=== PATIENT | male | born 1960 | race Caucasian/White ===

== ENCOUNTER 2017-09-28 21:06 | Emergency (ER) | payer BC ==
[2017-09-28 22:04] VITALS: TEMP 99.6
[2017-09-28] MEDS ORDERED: AMOXICILLIN 250 MG CAP PO ONE (22:24)
[2017-09-28] MEDS ORDERED: AMOXICILLIN(FRIDGE) 125/5 ML BOTTLE ONE (22:42)
[2017-09-28 23:11] VITALS: BP 151/64; PULSE 77; RESP 20; O2SAT 98
== END 2017-09-28 22:50 | disposition home or self-care (01) ==
LOC: ED 21:06
DX: J01.00 Acute maxillary sinusitis, unspecified (principal)
CPT/HCPCS: 71046; 87804; 99282; 99283; A9270-GY

== ENCOUNTER 2018-06-08 14:51 | Emergency (ER) | payer BC ==
[2018-06-08 16:46] VITALS: BP 146/89; PULSE 79; RESP 18; TEMP 96.5; O2SAT 97
== END 2018-06-08 15:35 | disposition home or self-care (01) ==
LOC: ED 14:51
DX: S09.90XA Unspecified injury of head, initial encounter (principal); S01.01XA Laceration without foreign body of scalp, initial encounter
CPT/HCPCS: 12001; 99282; 99283; A6402